=== PATIENT | female | born 1995 | race African-American/Black ===

== ENCOUNTER 2016-09-16 11:50 | Emergency (ER) | payer OTHER ==
[~2016-09-16] VITALS: Ht 162.6 cm; Wt 130.0 kg
[2016-09-16 11:53] VITALS: BP 143/86; PULSE 82; RESP 20; TEMP 98.7; O2SAT 100
[2016-09-16 12:04] VITALS: PULSE 80
--- NOTE | 2016-09-16 12:07 | PD ---
Physical Exam Date Seen by Provider: Sep 16, 2016 Time Seen by Provider: 12:05 Narrative 21 y/o female presents with right upper jaw pain and swelling that has been getting progressively worse over the past week. Patient states she is 7 weeks . Pain and swelling worsening in the past several days. Patient has not been taking anything due to her . Pain is 8/10. Patients VS stable. Awaiting Bed Placement. Data Data Last Documented VS Vital Signs Date Time Temp Pulse Resp B/P Pulse Ox O2 Delivery O2 Flow Rate FiO2 09/16/16 11:53 98.7 82 20 143/86 100 Room Air [facility] Medical Record Reviewed: Yes Supervised Visit with BENSON: Yes Condition: Stable Rafal Barron Sep 16, 2016 12:07
--- NOTE | 2016-09-16 14:12 | PD ---
HPI Chief Complaint: Oral / Dental Pain or Problem Time Seen by Provider: 14:12 Travel History International Travel<30 days: No Contact w/Intl Traveler<30days: No Traveled to known affect area: No History of Present Illness HPI Patient comes in complaining of right upper dental pain and possible abscess ongoing for a week. Patient states she thinks she may have possibly busted the abscess while brushing her teeth as she was getting out pus and got some pain relief. Patient denies any fevers, nausea, vomiting, headache, chest pain, or shortness of breath. Patient states she tried contacting her dentist but is unable get in for 2 more weeks. Patient describes a throbbing aching pain without radiation. Patient has been gargling with minimal relief of her symptoms. Eating and drinking makes pain worse. PFSH Past Medical History Medical History: Denies Significant Hx ?: LMP: August, Social History Alcohol Use: No Tobacco Use: No Substance Use: No Allergies-Medications (Allergen,Severity, Reaction): Coded Allergies: No Known Allergies (Unverified , 09/16/16) Reported Meds & Prescriptions Reported Meds & Active Scripts Active Penicillin V Potassium 500 Mg Tab 500 Mg PO Q8H 10 Days Review of Systems Except as stated in HPI: all other systems reviewed are Neg Physical Exam Narrative GENERAL: Well-developed, overly nourished, in no acute distress, and non-ill appearing. SKIN: Focused skin assessment warm and dry. HEAD: Atraumatic. Normocephalic. EYES: Pupils equal and round. EOMI. No scleral icterus. No injection or drainage. ENT: No nasal bleeding or discharge. Mucous membranes pink and moist. Poor dentition with no visible or palpable abscess. NECK: Trachea midline. No cervical lymphadenopathy. Supple. No nuclear rigidity. RESPIRATORY: No accessory muscle use. No respiratory distress. MUSCULOSKELETAL: No obvious deformities. No clubbing. No cyanosis. No edema. Full range of motion. NEUROLOGICAL: Awake and alert. No obvious cranial nerve deficits. Motor grossly within normal limits. Normal speech. PSYCHIATRIC: Appropriate mood and affect; insight and judgment normal. Data Data Last Documented VS Vital Signs Date Time Temp Pulse Resp B/P Pulse Ox O2 Delivery O2 Flow Rate FiO2 09/16/16 14:53 18 09/16/16 12:04 80 09/16/16 11:53 98.7 143/86 100 Room Air MDM Medical Decision Making Medical Screen Exam Complete: Yes Emergency Medical Condition: Yes Differential Diagnosis Dentalgia, dental abscess, dental infection, other Narrative Course The patient presented with dental pain. There is no fever. There is no significant facial swelling or evidence of cellulitis. There is poor dentition but no evidence of drainable abscess at this time. There is no evidence of significant deep or invading abscess at this time. The patient will be placed on antibiotics and instructed to use Tylenol for pain. The patient was instructed to follow up with a dentist. Warnings were discussed with the patient regarding worsening of infection. The patient is to return if pain worsens, develops progressive swelling or facial redness or fever. The patient agrees with plan. Patient in no obvious distress upon re-evaluation. All pertinent laboratory/ Radiology result(s) discussed with patient. Discussed patient with Dr. Mckinney prior to discharge, who is in agreement with plan of care and disposition. Patient was asked if they wanted to speak to my attending, which the patient did not wish to do at this time. Any questions/concerns in reference to patient diagnosis/condition discussed and clarified prior to patient's discharge. Reinforced sheer importance of close follow up with patient 's primary physician or primary care clinic. Instructed patient to return to ED immediately, if symptoms return/worsen. Pt showed understanding of above instructions. Further instructions and recommendations were detailed in discharge paperwork. Pt ambulated without difficulty out of ED at discharge. Diagnosis Primary Impression: Dentalgia Patient Instructions: Dental Abscess (ED), Dental Caries (DC), General Instructions Additional Instructions: Follow-up with your primary care physician and dentist as soon as possible. Rinse mouth with warm salt water gargles. Take all medication as prescribed. Use [id number] Tylenol as needed for pain. Follow instructions on the packaging. Return to the emergency department if symptoms get worse. Med/Other Pt SpecificInfo: Prescription(s) given Scripts Penicillin V Potassium 500 Mg [id number] Mg PO Q8H 10 Days Ref 0 Prov:Peter Mckinney MD 09/16/16 Disposition: 01 DISCHARGE HOME Condition: Stable Jaycob Echeverria Sep 16, 2016 14:12
[2016-09-16] MEDS ORDERED: PENI500T PO (14:20)
== END 2016-09-16 14:55 | disposition home or self-care (01) ==
LOC: NEPD 11:50
DX: K08.89 Other specified disorders of teeth and supporting structures (principal)
CPT/HCPCS: 99283

== ENCOUNTER → 2017-02-01 | Outpatient (CLI) | payer OTHER ==
[~2017-02-01] MED LIST: PENI500T PO
== END ==
LOC: HPND 09:09
PROVIDERS: ATTEND Obstetrics & Gynecology
DX: O99.212 Obesity complicating pregnancy, second trimester (principal); E66.01 Morbid (severe) obesity due to excess calories; Z68.43 Body mass index [BMI] 50.0-59.9, adult; O34.212 Maternal care for vertical scar from previous cesarean delivery; Z3A.27 27 weeks gestation of pregnancy
CPT/HCPCS: 76811